=== PATIENT | male | born 1940 | race Caucasian/White ===

== ENCOUNTER → 2016-08-06 | Outpatient (CLI) | payer OTHER ==
--- NOTE | 2016-08-06 09:35 | MR ---
MRI Lower Extremity, Right Knee History: Knee pain. Weakness. Instability. Evaluate for meniscal tear. ICD-10 code S83.271A. Comparison: None. Technique: MRI was performed of the right knee using a 3 [employer] MRI system. Axial, sagittal, and coron al images were obtained with standard imaging sequences. Findings: General: Moderate suprapatellar joint effusion with synovial proliferation. Mildly complex [place] cyst is seen extending craniocaudally for 3 cm. Ligaments and Tendons: There is mild abnormal signal intensity in the anterior cruciate ligament tegan g the posterolateral bundle which could represent strain or mild mucinous degeneration or tendinopath y. Intact fibers are present in both the anterior medial and posterior lateral bundles. Posterior cru ciate ligament is intact. Medial collateral ligament is unremarkable. Mild abnormal signal intensity is seen in the distal semimembranosus tendon without attenuation. Iliotibial band, fibular collateral ligament, and biceps femoris are unremarkable. There is mild abnormal signal intensity in the poplit eus tendon. Menisci and Cartilage: Diminutive appearance of the posterior horn and body of the medial meniscus. W ith the lack of history of prior surgery this is more likely tear. Additionally there is abnormal sig nal intensity in the posterior horn and body extending to the inferior articular surface and contour abnormality. There is upper surface tear in the anterior horn and junction with the body. Cartilage s ignal abnormality and thinning are seen in the medial compartment with full-thickness cartilage loss in the central and posterior weightbearing portion. Prominent periarticular spurring is present. Subc ortical bone marrow edema and sclerosis are seen in the medial compartment. Horizontal signal abnormality is seen in the posterior horn and body of the lateral meniscus extendin g to the inferior articular surface near the free edge. There is also some attenuation at the menisca l root. Cartilage signal abnormality and mild thinning are seen in the posterior weightbearing portio n of the lateral compartment. Extensor Mechanism: Cartilage signal abnormality and thinning are seen in the patella and trochlear g roove. The thinning is more severe superiorly along the median ridge extending to the lateral facet w ith full-thickness cartilage loss. There is periarticular spurring of the patella more prominent supe riorly and laterally. Quadriceps tendon and patellar tendon are unremarkable. Impression: 1. 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 2. Horizontal tear posterior horn and body of the lateral meniscus extending to the inferior articula r surface with grade 1 and grade 2 articular cartilage disease lateral compartment. 3. 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 4. Mild strain or tendinopathy or mucinous degeneration of the anterior cruciate ligament. 5. Mild tendinopathy distal semimembranosus tendon and popliteus tendon. 6. Suprapatellar joint effusion with synovial proliferation. Mildly complex [place] cyst.
== END ==
LOC: FIMAGING 08:11
PROVIDERS: ATTEND Orthopaedic Surgery
DX: S83.231A Complex tear of medial meniscus, current injury, right knee, initial encounter (principal); S83.271A Complex tear of lateral meniscus, current injury, right knee, initial encounter; M22.41 Chondromalacia patellae, right knee; M71.21 Synovial cyst of popliteal space [Baker], right knee; M25.461 Effusion, right knee

== ENCOUNTER → 2018-10-07 | Outpatient (CLI) | payer OTHER | LOC: FIMAGING 14:16 | PROVIDERS: ATTEND Internal Medicine | DX: N64.89 Other specified disorders of breast (principal); N64.4 Mastodynia ==